=== PATIENT | male | born 2000 | race Native Hawaiian/Other Pacific Islander ===

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

== ENCOUNTER 2021-08-24 05:20 | Outpatient (CLI) | payer OTHER ==
[2021-08-24 05:53] LABS: PLATELET COUNT 193 K/uL (142-355)
[2021-08-24 06:15] LABS: POTASSIUM 4.4 mmol/L (3.6-5.2)
== END 2021-08-24 19:56 | disposition home or self-care (01) ==
LOC: LABW 05:20
PROVIDERS: ATTEND Internal Medicine
DX: E03.9 Hypothyroidism, unspecified (principal)
CPT/HCPCS: 36415; 80053; 80061; 81000; 83036; 83735; 84439; 84443; 85027; 85652; 86038

== ENCOUNTER 2021-09-04 08:29 | Outpatient (CLI) | payer OTHER | END 2021-09-04 18:44 | disposition home or self-care (01) | LOC: CT 08:29 | PROVIDERS: ATTEND Internal Medicine | DX: R94.6 Abnormal results of thyroid function studies (principal); I10 Essential (primary) hypertension | CPT/HCPCS: Q9963 ==